=== PATIENT | female | born 1970 | race Caucasian/White ===

== ENCOUNTER 2023-05-18 14:49 | Outpatient (CLI) | payer BC, SELFPAY ==
--- NOTE | ~2023-05-18 | US_ITS ---
EXAMINATION: US pelvic complete w TV DATE: 05/18/2023 15:35 INDICATION: Hypertrophy of the uterus TECHNIQUE: Multiple transabdominal and endovaginal sonographic images of the pelvis were obtained. COMPARISON: None. FINDINGS: There is suboptimal visualization of the uterus. The uterus measures 11.3 x 5.9 x 7.5 cm. Suggestion of a couple hypoechoic uterine fibroids measuring approximately 3 cm and 4 cm in maximal diameter. Th e endometrial complex is is unable to be clearly distinguished from the myometrium to assess for thic kness. The right ovary is not visualized. The left ovary measures 2.5 x 1.6 x 1.7 cm. After flow with arterial waveforms identified in the left ovary on color Doppler. There is no free fluid in the pelv is. IMPRESSION: 1. Limited visualization of the uterus with suggestion of a couple 4 cm 3 cm uterine fibroids. Reviewed, dictated and finalized at location A. ER LABOR IMPRESSION: 1. Limited visualization of the uterus with suggestion of a couple 4 cm 3 cm ut erine fibroids.
== END 2023-05-18 14:50 ==
LOC: MICIMG 14:50
PROVIDERS: PCP Nurse Practitioner; Visit Provider Nurse Practitioner
DX: N85.2 Hypertrophy of uterus (principal)
CPT/HCPCS: 76830; 76856

== ENCOUNTER 2024-06-18 00:29 | Day surgery (SDC) | payer BC, SELFPAY ==
--- NOTE | 2024-06-07 08:36 | SUR.PREOP ---
Report to the Outpatient Waiting Room, entrance under the green pavilion located off [facility], at time _0745_ on date _06/18/2024_. Planned Procedure Time: _0945_.? Time changes happen often and if your time is changed the preop area will call you the afternoon before. - You and your visitor will be asked to self-screen and do not enter if you have any COVID symptoms. Please call surgeon if you need to reschedule. - A mask is optional within the hospital at this time. Patients may have clear liquids (water, carbonated beverages, clear teas, apple juice) until 3 hours (0645) prior to surgery with a maximum of 20 ounces. - No food from midnight until time of surgery and no smoking, or chewing tobacco (or any form of nicotine). No chewing gum, candy or mints. - Infants may have breast milk until 4 hours before surgery, infant formula 6 hours prior to surgery. - Children will be allowed to drink immediately following surgery.? If applicable, please bring a bottle or sippy cup to assist with drinking. Juice, water, soda, and popsicles are readily available.? For infants on formula, please bring formula the day of surgery.? Pacifiers are allowed. Take only the following medications with a SIP of water on the morning of surgery: _NONE_ DO NOT STOP ANY OF YOUR OTHER PRESCRIPTION MEDICATIONS PRIOR TO SURGERY EXCEPT THE FOLLOWING Hold all vitamins and supplements for 3 days per anesthesiologist. Medications to discontinue per physician _nereida stop now_ Please no make-up, nail estonian, hairspray, perfume, deodorant, or body powder the day of surgery.? No jewelry (including any body piercings) or valuables the day of surgery, leave them at home.? Please take a shower or bath the night before, or the morning of, surgery with an antibacterial soap.? Wear comfortable, loose fitting clothing.? Children are encouraged to wear pajamas. - Jewelry must be removed prior to entering the operating room.? Rings and piercings that are not removed may be cut off. - The hospital will not accept responsibility for valuables.? - Please leave all valuables, including medications, at home the day of surgery. If you are going home after surgery, a licensed hook up driver must drive you home.? - NO public transportation without another adult if you receive anesthesia. - We recommend that an adult stay with you for 24 hours following discharge. - We also recommend that you do not drive, make important decision, drink alcoholic beverages, or take any drugs that were not prescribed by your health care provider for at least 24 hours after your discharge time. For Pediatric surgeries, we recommend two adults accompany the child home. Follow any additional instructions given to you from your surgeon. Telephone instructions given to _Sarah_and asked if any additional questions and then verbalized understanding. Patient advised to call surgeon office or pre surgery nurse liaison [phone] if any additional questions.
[2024-06-07 08:49] VITALS: BMI 37.5
--- NOTE | 2024-06-17 10:45 | P.PNAN_ITS ---
Anes - Initial Pre Proc Eval Procedure: Operation Date: 06/18/24 09:45 Proposed Procedures p Hysteroscopy, Dilation and Curettage - Concetta Nur MD Date/Time: 06/17/24 10:45 Surgeon: Concetta Nur MD Pre Op Diagnosis: post menopausal bleeding Patient Data Age: 53 Gender: F Height: 1.65 m Weight: 102.27 kg Allergies Allergy/AdvReac Type Severity Reaction Status Date / Time No Known Allergies Allergy Verified 06/18/24 08:18 Home Medications ?Medication ?Instructions ?Recorded ?Confirmed ?Type buspirone 10 mg tablet 10 mg PO DAILY 06/07/24 06/18/24 History sertraline 50 mg tablet 50 mg PO DAILY 06/07/24 06/18/24 History tirzepatide 15 mg/0.5 mL 15 mg subcut WEEKLY 06/07/24 06/18/24 History subcutaneous pen injector (Mounjaro) Patient hx anesthesia problems: none Family hx anesthesia problems: none Results Review: All pre-operative results and documents have been reviewed as part of the pre- operative evaluation. [facility] Past Medical History Medical History (Updated 06/18/24 @ 07:42 by Concetta Nur MD) Anxiety Tachycardia during Surgical History Surgical History (Updated 06/18/24 @ 07:41 by Concetta Nur MD) History of X2 H/O cardiac radiofrequency ablation for tachycardia during Social History Social History Smoking status: Never smoker Second hand tobacco smoke exposure: No Alcohol intake: current Alcohol use details: OCCASIONAL Substance use: never Substance use type: does not use Living arrangements: with family Additional living arrangements comments: and children Spiritual care concerns: No Anes - Eval Final PreProcedure Day of Procedure 06/17/24 10:45 Patient weight: obese Heart: regular rate and rhythm Lungs: clear to auscultation Airway: Mallampati scale class III Neurological: alert and oriented Last oral intake: >/= 8 hours ASA classification: II Emergent: no Anesthetic plan: proceed Anesthesia type and monitoring: general GIVS and standard monitoring Results Review: All pre-operative results and documents have been reviewed as part of the pre-operative evaluation. Informed Consent: The patient's anesthetic plan and its attendant risks and benefits were discussed with the patient/family/POA. Questions were solicited and answers provided to the satisfaction of the patient/family/POA.
--- OUTSIDE RECORDS SUMMARY | 2024-06-18 00:32 | XMS_ITS | Continuity of Care Document ---
Author Organization Activity [facility] Address [address] [place] [address] Phone Care Team Providers Care Intellectual Property Paralegal Name Role Phone Cliff Seymour MD Unavailable Unavailable Advance Directives Directive Yes / No Effective Date File Name No Information Encounters Encounter Description Practice Location Reason(s) For Visit Diagnoses Date Provider Providers Copied on Encounter [facility], [address], [place], [place], [id number], [place] tel:[phone] [facility] ANGIONEUROTIC EDEMAURTICARIA NECANAPHYLACTIC SHOCK [address] [place], [id number] , [place]. tel:[phone] Family History Family Member Type Diagnosis Age At Onset No Information Payers Payer name Insurance type Covered green party ID Authoriza tion(s) No Information Social History Type Description Quantity Date Captured Comments Sex Female Smoking Status No Information Chief Complaint And Reason For Visit No Information Reason For Referral Reason For Referral No Information History Of Present Illness Encounter Date Complaint History Of Prese nt Illness No Information Functional Status Date Functional Assessmen t No Information Instructions Date Instruction Additional Infor mation No Information Assessments Type Assessment Date No Information Patient Care Teams Name Effective Dates (start - stop) Status Members No Information
--- OUTSIDE RECORDS SUMMARY | 2024-06-18 00:32 | XMS_ITS | Encounter Summary ---
Author Organization [facility] Address [address] [place] [address] Care Team Providers Care Sugar Presser Name Role Phone Shayy Gaytan Primary Care Provider [phone] Encounter Details Date Type Department Care Team (Late st Contact Info) Description 05/27/2022 Vocation Message Enc [facility] Medical Group Family and Sports Medicine - [place] [address] [place] [address] Margo, [facility] Provider Health Maintenance Due After July 24 Social History Tobacco Use Types Packs/Day Years Used Date Smoking Tobacco: Never Smokeless Tobacco: Never Alcohol Use Standard Drinks/Week Comments Not Currently 1 (1 standard drink = 0.6 oz pur e alcohol) occasional PHQ-2 Answer Date Recorded PHQ-2 Score - If the patient scores above 3, please move on to questions 3-9 0 12/01/2021 Comments No Sex and Gender Information Value Date Recorded Sex Assigned at Not on file Legal Sex Female 7:22 PM CDT Gender Identity Female 07/21/2021 9:10 AM CDT Sexual Orientation Straight 07/21/2021 9: 10 AM CDT documented as of this encounter Plan of Treatment Not on file documented as of this encounter Visit Diagnoses Not on filedocumented in this encounter Additional Health Concerns Assessment Noted Time PHQ-9 Depression Total Score: 2 07/25/19 22 3:53 PM CDT documented as of this encounter Care Teams Sugar Presser Relationship Specialty Start Date End Date Shayy Gaytan APNP [address] [place] [address] PCP - General NURSE PRACTITIONER 07/24/21 documented as of this encounter
--- OUTSIDE RECORDS SUMMARY | 2024-06-18 00:32 | XMS_ITS | Encounter Summary ---
Author Organization [facility] Address [address] [place] [address] Care Team Providers Care Regional Business Manager Name Role Phone Shayy Gaytan Primary Care Provider [phone] Encounter Details Date Type Department Care Team (Late st Contact Info) Description 08/06/2022 [employer] Message Enc [facility] Medical Group Family and Sports Medicine - [place] [address] [place] [address] Margo, [facility] Provider Appointment Social History Tobacco Use Types Packs/Day Years [...] documented as of this encounter Care Teams Regional Business Manager Relationship Specialty Start Date End Date Shayy Gaytan APNP [address] [place] [address] PCP - General NURSE PRACTITIONER 07/24/21 documented as of this encounter
--- OUTSIDE RECORDS SUMMARY | 2024-06-18 00:32 | XMS_ITS | Encounter Summary ---
Author Organization [facility] Address [address] [place] [address] Care Team Providers Care Supervisor Hairspring Fabrication Name Role Phone Shayy Gaytan Primary Care Provider [phone] Encounter Details Date Type Department Care Team (Late st Contact Info) Description 03/05/2022 [employer] Message Enc [facility] Medical Group Family and Sports Medicine - [place] [address] [place] [address] Shayy Gaytan APNP [address] [place] [address] 572 New medication (shot) It went through. Social History Tobacco Use Types Packs/Day Years [...] Orientation Straight 07/21/2021 9: 10 AM CDT COVID-19 Exposure Response Date Recorded In the last 10 days, have yo u been in contact with someone who was confirmed or suspected to have Coronavirus/COVID-19? No / Unsure 03/05/2022 9:40 AM LOAN OPERATIONS MANAGER documented as of this encounter Plan of Treatment Not on file documented as of this encounter Visit Diagnoses Not on filedocumented in this encounter Additional Health Concerns Assessment Noted Time PHQ-9 Depression Total Score: 2 07/25/19 22 3:53 PM CDT documented as of this encounter Care Teams Supervisor Hairspring Fabrication Relationship Specialty Start Date End Date Shayy Gaytan APNP [address] [place] [address] PCP - General NURSE PRACTITIONER 07/24/21 documented as of this encounter
--- OUTSIDE RECORDS SUMMARY | 2024-06-18 00:32 | XMS_ITS | Clinical Summary ---
Author Organization [facility] Address [address] [place] [address] Care Team Providers Care Twister Tender Name Role Phone Shayy Mena Primary Care Provider [phone] Allergies No known active allergies Medications Estradiol-Nor ethindrone Acet 0.5-0.1 MG Tab 06/19/19 24 Active sertraline (ZOLOFT) 50 MG tabletIndicat ions:Moderate episode of recurrent major depressive disorder (CMS/HCC) Take 1 tablet (50 mg total) by mouth daily. 90 tablet 3 12/30/19 24 Active busPIRone (BUSPAR) 10 MG tabletIndicat ions:Anxiety Take 1 tablet (10 mg total) by mouth nightly. 90 tablet 3 02/08/20 24 Active MOUNJARO 15 MG/0.5ML injectionIndi cations:Overw eight INJECT 15MG SUBCUTANEOUSLY ONCE A WEEK 4 mL 06/12/19 25 Active MOUNJARO 15 MG/0.5ML injectionIndi cations:Overw eight INJECT 15 MG SUBCUTANEOUSLY ONCE A WEEK 4 mL 04/16/19 25 2024 Discontinued Active Problems No known active problems Resolved Problems Problem Noted Date Diagnosed Date Resolved Date Screening for colon cancer 12/29/2021 1 05/06/2021 Overview (12/29/2021): Added automatically from request for surgery [id number] Immunizations Name Administration Dates Next Due PFIZER COVID-19 (ORIGINAL FO RMULATION, PURPLE CAP) mRNA, LNP-S, PF, 30 MCG/0.3 ML DOSE 07/31/2020,07/11/2020 Shingrix 03/05/2022,12/31/2021 Family History Medical History Relation Comments Diabetes Maternal Grandmother None Maternal Grandmother Cancer Mother Diabetes Mother Ovarian Cancer Mother Uterine Cancer Mother Relation Status Comments Father Maternal Grandmother Mother Social History Tobacco Use Types Packs/Day Years Used Date Smoking Tobacco: Never Passive Smoke Exposure: Never Smokeless Tobacco: Never Tobacco Cessation:Counseling Given: No Alcohol Use Standard Drinks/Week Comments Not Currently 1 (1 standard drink = 0.6 oz pur e alcohol) occasional PHQ-2 Answer Date Recorded Patient Health Questionnaire-2 Score 0 11/07/2023 Comments No Sex and Gender Information Value Date Recorded Sex Assigned at Not on file Legal Sex Female 7:22 PM CDT Gender Identity Female 07/21/2021 9:10 AM CDT Sexual Orientation Straight 07/21/2021 9: 10 AM CDT Last Filed Vital Signs Vital Sign Reading Time Taken Comments Blood Pressure 124/88 12/30/2023 12:50 PM CDT Pulse 70 12/30/2023 12:50 PM CDT Temperature 36.2 C (97.2 F) 12/30/2023 12:50 PM CDT Respiratory Rate 18 12/30/2023 12:50 PM CDT Oxygen Saturation 99% 12/30/2023 12:50 PM CDT Inhaled Oxygen Concentration - - Weight 102.1 kg (225 lb) 12/30/2023 12:50 PM CDT Height 165.1 cm (5' 5 ) 12/30/2023 12:50 PM CDT Body Mass Index 37.44 12/30/2023 12:50 PM CDT Plan of Treatment Health Maintenance Due Date Last Done Comments DTaP, Tdap and Td Vaccines (1 - Tdap) 1988 Hepatitis B Vaccines (1 of 3 - 19+ 3-dose series) 1988 Cervical Cancer Screening Pap with HPV Testing (Age 30 to 64) Every 5 Years 08/21/1999 COVID-19 Vaccine ( - season) 2023 04/18/2021, 07/31/2020, 07/11/2020 Influenza Adult (#1) 2024 PHQ-2 (Physician [place]) 04/04/2024 11/07/2023 Cervical Cancer Screening Pap Smear (Age 30 to 64) Every 3 Years 07/08/2024 07/08/2021, 07/03/2021 Cervical Cancer Screening with HPV 07/08/2024 Annual Physical 11/06/2024 11/07/2023, 09/02, 07/24/2021 Mammogram Screening 12/01/2025 12/02/2023, 09/10/2022, 08/14/2021, Additional history exists Colorectal Cancer Screening Colonoscopy (10 Years) 04/26/2032 04/26/2022, 04/26/2022 Hepatitis C Completed 07/31/2021 Zoster Vaccines Completed 03/05/2022, 12/31/2021 Meningococcal B Vaccine Aged Out No l onger eligible based on patient's age to complete this topic Meningococcal Vaccine Aged Out No jean noemi eligible based on patient's age to complete this topic Pneumococcal Vaccine: Pediatrics (0 to 5 Years) and At-Risk Patients (6 to 64 Years) Aged Out No longer eligible based on patient's age to complete this topic RSV Immunizations Under 20 Months Aged Out No longer eligible based on patient's age to complete this topic Medical Devices Implanted Type Area Photocopier Technician Device Identifier Shelf Expiration Date Model / Serial / Lot Clip Resolution 360 235cm 17mm - [id number] Implanted:Qty: 1 on 04/26/2022 by Mk Bojorquez MD at [facility] [employer] Clip Implant [employer] 01/15/2025 [id number] / / [id number] Procedures Procedure Name Priority Date/Time Associated Diagnosis Comments MG SCREENING W MARCELINO VALERIE DIGI Routine 12/02/2023 10:25 AM CDT Encounter for screening mammogram for malignant neoplasm of breast COLONOSCOPY Routine 04/26/2022 9:40 AM RN CARDIOVASCULAR ICU HEPATITIS C ANTIBODY Routine 07/31/2021 8:48 AM CDT Need for hepatitis C screening test OUTSIDE CYTOPATH CERV/VAG INTERPRET (PAP) (SCAN ORDER) 07/08/2021 from Last 3 Months or Most Recently Relevant to Health Maintenance Results * MG SCREENING W MARCELINO VALERIE DIGI (12/02/2023 10:25 AM CDT) Anatomical Region Laterality Modality Breast Bilateral Mammography 12/02/2023 10:3 0 AM CDT Impressions 12/02/2023 10:31 AM CDT IMPRESSION: No suspicious mammographic findings. Recommendation: 1. Routine Screening, Bilateral Assessment: ACR BI-RADS 2 - BENIGN FINDING(S) Ordered By: SHAYY MENA Interpreted By: Donavan Collado, 12/02/2023 10:30 AM Narrative 12/02/2023 10:31 AM CDT [address] [address] Examination: Screening bilateral mammogram Exam Date/Time: 12/02/2023 10:07 AM Clinical history: No current complaints Comparison: 09/10/2022 Technique: Digital screening mammography of both breasts was performed. Breast tomosynthesis acquisitions were obtained and reviewed. This study was read with the assistance of a computer-aided detection system. Tissue density: There are scattered areas of fibroglandular density. Findings: No suspicious masses, malignant appearing calcifications, skin thickening or other abnormalities are present. No significant change from the prior exam. Shayy Lukas [facility] Final Result * HEPATITIS C ANTIBODY (07/31/2021 8:48 AM CDT) HEPATITIS C AB <0.1 0.0 - 0.9 s/co ratio [facility] 1 Comment: Negative: < 0.8 Indeterminate: 0.8 - 0.9 Positive: > 0.9 The CDC recommends that a positive HCV antibody result be followed up with a HCV Nucleic Acid Amplification test (515535). 07/31/2021 8:48 AM CDT 07/31/2021 Narrative [facility] - 08/01/2021 8:13 AM CDT Performed at: [address] [place], [place] [id number] Marketing Analyst: Roc Stoll PhD, Phone: [phone] Shayy [facility] Final Result [facility] [address] [place] [address] [facility] 1 * PAP SMEAR (07/08/2021) 07/08/2021 us Doc [facility] Scanned SCANNING Final Resu lt from Last 3 Months or Most Recently Relevant to Health Maintenance Insurance [facility] Care Teams Twister Tender Relationship Specialty Start Date End Date Shayy Mena APNP [address] [place] [address] PCP - General NURSE PRACTITIONER 07/24/21
--- OUTSIDE RECORDS SUMMARY | 2024-06-18 00:32 | XMS_ITS | Encounter Summary ---
Author Organization [facility] Address [address] [place] [address] Care Team Providers Care Global Professional Name Role Phone Shayy Gaytan Primary Care Provider [phone] Encounter Details Date Type Department Care Team (Late st Contact Info) Description 09/09/2021 [employer] Message Enc [facility] Medical Group Family and Sports Medicine - [place] [address] [place] [address] Shayy Gaytan APNP [address] [place] [address] 440 Boil on eyelid and under chin Social History Tobacco Use Types Packs/Day Years Used Date Smoking Tobacco: Never Smokeless Tobacco: Never Alcohol Use Standard Drinks/Week Comments Not Currently 1 (1 standard drink = 0.6 oz pur e alcohol) occasional PHQ-2 Answer Date Recorded PHQ-2 Score - If the patient scores above 3, please move on to questions 3-9 2 07/24/2021 Comments No Sex and Gender Information Value [...] suspected to have Coronavirus/COVID-19? No / Unsure 09/09/2021 8:09 AM CDT documented as of this encounter Plan of Treatment Not on file documented as of this encounter Visit Diagnoses Not on filedocumented in this encounter Additional Health Concerns Assessment Noted Time PHQ-9 Depression Total Score: 2 07/25/19 3:53 PM CDT documented as of this encounter Care Teams Global Professional Relationship Specialty Start Date End Date Shayy Gaytan APNP [address] [place] [address] PCP - General NURSE PRACTITIONER 07/24/21 documented as of this encounter
--- OUTSIDE RECORDS SUMMARY | 2024-06-18 00:32 | XMS_ITS | Encounter Summary ---
Author Organization [facility] Address [address] [place] [address] Care Team Providers Care Associate Professor Of Library Science Name Role Phone Shayy Gaytan Primary Care Provider [phone] Encounter Details Date Type Department Care Team (Late st Contact Info) Description 10/21/2021 [employer] Message Enc [facility] Medical Group Family and Sports Medicine - [place] [address] [place] [address] Shayy Gaytan APNP [address] [place] [address] [phone] My daughter, Mya, needs to come in to see you. Social History Tobacco Use Types Packs/Day Years [...] suspected to have Coronavirus/COVID-19? No / Unsure 10/09/2021 8:27 AM CDT documented as of this encounter Progress Notes * Rose Li MA - 10/23/2021 10:39 AM CDT Thank you so much. * RAUDEL Mendoza - 10/23/2021 10:37 AM CDT Ok, I will see her as a new pt on 10/30/21. You may override the schedule if needed. Just make sure 40 min for new pt. * RAUDEL Mendoza - 10/23/2021 10:37 AM CDTFrom: Brandon Newton To: Shayy Gaytan Sent: 10/21/2021 10:12 AM CDT Subject: My daughter, Mya, needs to come in to see you. My daughter Mya saw my OB ( Renée Em) and she needs her yearly exam for her control refill.Do you do those exams? documented in this encounter Plan of Treatment Not on file documented as of this encounter Visit Diagnoses Not on filedocumented in this encounter Additional Health Concerns Assessment Noted Time PHQ-9 Depression Total Score: 2 07/25/19 3:53 PM CDT documented as of this encounter Care Teams Associate Professor Of Library Science Relationship Specialty Start Date End Date Shayy Gaytan APNP [address] [place] [address] PCP - General NURSE PRACTITIONER 07/24/21 documented as of this encounter
--- OUTSIDE RECORDS SUMMARY | 2024-06-18 00:32 | XMS_ITS | Encounter Summary ---
Author Organization [facility] Address [address] [place] [address] Care Team Providers Care Apartment Maintenance Worker Name Role Phone Shayy Gaytan Primary Care Provider [phone] Encounter Details Date Type Department Care Team (Late st Contact Info) Description 12/15/2022 [employer] Message Enc [facility] Medical [facility] Family and Sports Medicine - [place] [address] [place] [address] Shayy Gaytan APNP [address] [place] [address] [phone] Mounjaro 10 mg Social History Tobacco Use Types Packs/Day Years Used Date Smoking Tobacco: Never Smokeless Tobacco: Never Alcohol Use Standard Drinks/Week Comments Not Currently 1 (1 standard drink = 0.6 oz pur e alcohol) occasional PHQ-2 Answer Date Recorded Patient Health Questionnaire-2 Score 0 09/17/2022 Comments No Sex and Gender Information Value [...] Assessment Noted Time PHQ-9 Depression Total Score: 0 09/18/19 23 10:51 AM CDT documented as of this encounter Care Teams Apartment Maintenance Worker Relationship Specialty Start Date End Date Shayy Gaytan APNP [address] [place] [address] PCP - General NURSE PRACTITIONER 07/24/21 documented as of this encounter
--- OUTSIDE RECORDS SUMMARY | 2024-06-18 00:32 | XMS_ITS | Clinical Summary ---
Author Organization [facility] Address [address] [facility] [place] [address] Care Team Providers Care Audio Video Mechanic Name Role Phone Unavailable Primary Care Provider Unavailabl e Medications tirzepatide (Mounjaro) 10 mg/0.5 mL Pen Injector Inject 10 mg by subcutaneous injection once a week. 2 mL 2 12/17/2022 2:21 PM CDT 3 Active tirzepatide (Mounjaro) 12.5 mg/0.5 mL Pen Injector Inject 12.5 mg into the skin once a week. 2 mL 2 3 Active Encounters Date Type Department Care Team Description 06/13/2024 External Device Data [facility] Provider, Abstract 06/12/2024 External Device Data [facility] Provider, Abstract 06/09/2024 External Device Data [facility] Provider, Abstract 06/09/2024 External Device Data [facility] Provider, Abstract 06/06/2024 External Device Data [facility] Provider, Abstract 05/23/2024 External Device Data [facility] Provider, Abstract 04/26/2024 External Device Data [facility] Provider, Abstract 04/17/2024 External Device Data [facility] Provider, Abstract from Last 3 Months Social History Tobacco Use Types Packs/Day Years Used Date Smoking Tobacco: Never Assessed Comments Unknown Sex and Gender Information Value Date Recorded Sex Assigned at Not on file Legal Sex Female 7:25 PM CDT Gender Identity Not on file Sexual Orientation Not on file Plan of Treatment Health Maintenance Due Date Last Done Comments DTAP/TDAP/TD VACCINES (1 - Tdap) 1988 HEPATITIS B VACCINES (1 of 3 - 19+ 3-dose series) 1988 CERVICAL CANCER SCREENING 08/21/1999 BREAST CANCER SCREENING 2009 COLORECTAL SCREENING 2014 Colorectal Cancer Screening 2014 FIT-DNA Q 3 years 2014 FIT/FOBT Q 1 year 2014 Flex Sig/CT Colonography Q 5 years 2014 ZOSTER VACCINE (1 of 2) 08/21/2019 INFLUENZA VACCINE (#1) 2023 PNEUMOCOCCAL VACCINE 0-49 YEARS Aged Out No longer eligible based on patient's age to complete this topic Insurance RX [facility] [employer]
--- NOTE | 2024-06-18 07:39 | WPDHPUPDATE1 ---
History and Physical Update Update Date/Time: 06/18/24 07:39 History and Physical has been reviewed, including an updated exam of the patient. There are NO changes in the patient's condition. Risks, benefits, and alternatives have been discussed and questions answered. Patient agrees to proceed with procedure.
--- NOTE | 2024-06-18 07:40 | PM.HPGS ---
History of Present Illness History of Present Illness Consent: Risks, benefits, and alternatives have been discussed and questions answered. Patient agrees to proceed with procedure. Chief complaint: post menopausal bleeding Narrative: Sarah Boswell is a 53 year old female with postmenopausal bleeding. Options were discussed with the patient we plan to proceed with D&C hysteroscopy. Risks of infection, bleeding perforation, and possible pathology are discussed. Patient voices understanding and agrees to proceed. Review of Systems Review of Systems: not repeated day of surgery; patient states no changes in status [facility] Past Medical History Medical History (Updated 06/18/24 @ 07:42 by Concetta Nur MD) Anxiety Tachycardia during Surgical History Surgical History (Updated 06/18/24 @ 07:41 by Concetta Nur MD) History of X2 H/O cardiac radiofrequency ablation for tachycardia during Social History Social History Smoking status: Never smoker Second hand tobacco smoke exposure: No Alcohol intake: current Alcohol use details: OCCASIONAL Substance use: never Substance use type: does not use Living arrangements: with family Additional living arrangements comments: and children Spiritual care concerns: No Meds Home Medications and Allergies Home Medications ?Medication ?Instructions ?Recorded ?Confirmed ?Type buspirone 10 mg tablet 10 mg PO DAILY 06/07/24 06/07/24 History sertraline 50 mg tablet 50 mg PO DAILY 06/07/24 06/07/24 History tirzepatide 15 mg/0.5 mL 15 mg subcut WEEKLY 06/07/24 06/07/24 History subcutaneous pen injector (Mounjaro) Allergies Allergy/AdvReac Type Severity Reaction Status Date / Time No Known Allergies Allergy Verified 06/07/24 08:43 Exam Const: General: healthy appearing and alert Orientation/consciousness: patient oriented x3 Resp: Effort & Inspection: normal respiratory effort Auscultation: clear to auscultation bilaterally Cardio: Rate: regular rate Rhythm: regular rhythm GI: GI Palp: Yes Soft to palpation, No Tenderness to palpation present (GI) and No Palpable mass present : External Female Exam: normal external appearance Speculum Exam - Vagina: normal appearance of the vagina and normal vaginal discharge Speculum Exam - Cervix: normal appearance of the cervix Bimanual exam- vagina & uterus: uterine size normal and consistency normal Bimanual Exam- Adnexa, other: normal adnexae and No adnexal tenderness Neuro: General: patient oriented x3 Assessment and Plan Assessment and plan (1) Post-menopausal bleeding: Code(s): N95.0 - Postmenopausal bleeding Status: Acute Assessment and Plan: Plan to proceed D&C hysteroscopy
[2024-06-18 07:55] VITALS: BP 134/80; PULSE 71; RESP 16; TEMP 36.5; O2SAT 99
[2024-06-18] MEDS: ACETAMINOPHEN 500 MG TABLET 1000 MG PO (08:00)
[2024-06-18] MEDS: LACTATED RINGERS 1,000 ML 30 ML IV CONT (08:10)
[2024-06-18 08:23] LABS: BEDSIDEPREGUCG Negative (Negative)
[2024-06-18 08:24] LABS: BEDSIDEPREGUCG Negative (Negative)
[2024-06-18 08:26] VITALS: BMI 37.6
--- NOTE | 2024-06-18 10:05 | W.PM.PROC2 ---
Procedure Note - Detailed Date of Procedure 06/18/24 Pre-op Diagnosis post menopausal bleeding Post-op Diagnosis Same Procedure Performed D&C hysteroscopy Surgeon Concetta Nur MD Anesthesia MAC Findings The cervix is stenotic. The uterus is very anterior. There was a small polyp anterior midline. The remainder of the endometrium was very atrophic. Description of Procedure The patient is taken to the operating room and placed under anesthesia in the dorsal lithotomy position. She was prepped and draped in usual sterile fashion. The bivalve speculum was placed in the vagina and the cervix is grasped on the anterior lip with a tenaculum. The external os is very stenotic. The os Finders were used and the external and internal os are past. Attempting to place the uterine sound was not successful past 3cm. The hysteroscope is placed and using hydrodissection following the endocervical canal the endometrium was found very anterior. The endometrium has a small polyp therefore the small Aveta resection device is opened and placed. The small polyp is excised using the device. Due to the very convoluted passed to the endometrium I attempted to also use the resection device to resect some of the endometrium. However it was very atrophic and minimal material was obtained. The hysteroscope was removed. The uterus is sounded to 10cm. The sharp curette is able to find a path to the endometrium and a sharp curetting was performed with again minimal material obtained consistent with the visual appearance. All instruments are removed. The sponge, needle, and instrument counts are correct per the OR staff. The patient was awakened from anesthesia and taken to recovery in stable condition. Estimated Blood Loss 5 Drains No Packing No Pathology Yes (Endometrial shavings and curettings) Complications No immediate complications Condition Stable
[2024-06-18 10:08] VITALS: BP 128/76; PULSE 70; RESP 16; O2SAT 100
--- NOTE | 2024-06-18 10:14 | SUR.OPER ---
Fluid Deficit 80
[2024-06-18 10:30] VITALS: BP 137/79; PULSE 60; RESP 16; O2SAT 99
[2024-06-18] MEDS: oxyCODONE HCL (*CRX) 5 MG TAB IR PO (10:44)
[2024-06-18 11:00] VITALS: BP 127/66; PULSE 60; RESP 16
== END 2024-06-18 11:11 | disposition home or self-care (01) ==
PROVIDERS: PCP Nurse Practitioner; Visit Provider Obstetrics & Gynecology Gynecology
PROC: 0U5B8ZZ Destruction of Endometrium, Via Natural or Artificial Opening Endoscopic (ICD-10-PCS; CPT 58563; principal; 2024-06-18 09:45)
DX: N84.0 Polyp of corpus uteri (principal); F41.9 Anxiety disorder, unspecified; E66.9 Obesity, unspecified; Z68.37 Body mass index [BMI] 37.0-37.9, adult; Z79.85 Long-term (current) use of injectable non-insulin antidiabetic drugs; Z98.890 Other specified postprocedural states; Z86.79 Personal history of other diseases of the circulatory system
CPT/HCPCS: 58558; 88305; A9270; J2250; J2704; J3010; J7120